=== PATIENT | female | born 1970 | race Caucasian/White ===

== ENCOUNTER → 2017-02-06 | Outpatient (CLI) | payer OTHER ==
--- NOTE | 2017-02-06 11:38 | KCIC ---
EXAM: Bilateral screening mammogram. HISTORY: 46-year-old female presents for screening mammography. TECHNIQUE: Full-field digital craniocaudal and mediolateral oblique standard and breast implant displaced views of both breasts are obtained for evaluation. COMPARISON: 01/16/2016, 11/24/2014 and 10/18/2013 BREAST PARENCHYMAL DENSITY: Level D - Extremely dense. FINDINGS: There is a small nodular density within the posterior superior right breast on the mediolateral oblique implant displaced image. There is no correlate for this finding on prior studies. There is no suspicious calcification or architectural distortion within either breast. IMPRESSION: BI-RADS Category 0: Additional imaging needed. RECOMMENDATION: Further evaluation with a spot compression mediolateral oblique view and full field true lateral view of the right breast to assess a small nodular density is recommended. Sonographic imaging can also be performed if deemed indicated based on additional imaging findings. If your mammogram demonstrates that you have dense breast tissue, which could hide abnormalities, and if you have other risk factors for breast cancer that have been identified, you might benefit from supplemental screening tests that may be suggested by your ordering physician. Dense breast tissue, in and of itself, is a relatively common condition. This information is not provided to cause undue concern, but rather to raise your awareness and to promote discussion with your physician regarding the presence of other risk factors, in addition to dense breast tissue. A report of your mammography results will be sent to you and your physician. You should contact your physician if you have any questions or concerns regarding this report. Mammography is a sensitive method for finding small breast cancers, but it does not detect them all and is not a substitute for careful clinical examination. A negative mammogram does not negate a clinically suspicious finding and should not result in delay in biopsying a clinically suspicious abnormality. "Our facility is accredited by the [employer] Mammography [employer]." Electronically signed by: Kim Brown MD (02/06/2017 11:35 AM) [id number]
== END | disposition home or self-care (01) ==
LOC: KCIC MAMMO 10:44
PROVIDERS: ATTEND Nurse Practitioner Family
DX: Z12.31 Encounter for screening mammogram for malignant neoplasm of breast (principal)
CPT/HCPCS: G0202; 77067

== ENCOUNTER → 2017-10-06 | Outpatient (CLI) | payer OTHER | END | disposition home or self-care (01) | LOC: KCIC MAMMO 12:49 | DX: N63.11 Unspecified lump in the right breast, upper outer quadrant (principal); R92.2 Inconclusive mammogram | CPT/HCPCS: 76641; 77065 ==

== ENCOUNTER → 2018-05-11 | Outpatient (CLI) | payer OTHER ==
--- NOTE | 2018-05-11 14:31 | KCIC ---
Bilateral diagnostic digital mammograms: Reason for examination: 6 month follow-up of the right breast. Annual routine evaluation of the left breast. Comparison is made to previous study dated 10/06/2017, 02/27/2017, 02/06/2017 and 01/16/2016. Interpretation was made with the benefit of CAD. The skin and nipples show no abnormalities. No abnormal axillary lymph nodes are seen. Bilateral breast implants remain present. The breast parenchyma is extremely dense. (Breast density: Category D.) There is a nodular parenchymal density posterior superiorly in the right breast seen only on oblique view. This will be further evaluated with ultrasound. There are no other dominant masses, suspicious calcifications or architectural distortion. Impression: Nodular parenchymal density posterior superiorly on the right oblique view. Ultrasound to follow. Your patient's mammogram demonstrates that she has dense breast tissue (breast density category C or D), which could hide abnormalities, and if she has other risk factors for breast cancer that have been identified, she might benefit from supplemental screening tests that may be suggested by you as her ordering physician. Dense breast tissue, in and of itself, is a relatively common condition. Therefore, this information is not provided to cause undue concern, but rather to raise your awareness and to promote discussion with your patient regarding the presence of other risk factors, in addition to dense breast tissue. Your patient's mammography results will be sent to her. BI-RAD Category 0: Incomplete. Needs additional imaging evaluation. Right breast ultrasound: Right breast ultrasound of the superior right breast and axilla was performed. There continues to be a small 3 mm fibrocystic type lesion at the 12:00 position 5 cm from the nipple. In the 11:00 position 8.5 cm from the nipple probably corresponding to the area of mammographic concern, there is a 5.1 x 3 mm hypoechoic lesion with a benign fibrocystic type appearance. No other cystic or solid lesions are seen. IMPRESSION: Probable fibrocystic lesion at the 11:00 position 8.5 cm from the nipple corresponding to the area of nodularity seen mammographically. Continued presence of a small fibrocystic lesion at the 12:00 position. Recommend follow-up with ultrasound in 6 months. BI-RADS Category 3: Probably Benign. "Our facility is accredited by the [employer] Mammography Program." This patient's information has been entered into a reminder system for the patient to be notified with the results of her examination and a target date for the next mammogram. Electronically signed by: Magaly Vargas MD (05/11/2018 2:27 PM) [id number]
== END | disposition home or self-care (01) ==
LOC: KCIC MAMMO 09:55
PROVIDERS: ATTEND Nurse Practitioner Family
DX: N64.89 Other specified disorders of breast (principal)
CPT/HCPCS: 76641; 77066

== ENCOUNTER → 2018-07-14 | Outpatient (CLI) | payer OTHER ==
[~2018-07-14] MED LIST: DIPH25CA PO; FLUO40CA9 PO; MONT10TA9 PO
--- NOTE | 2018-07-14 09:49 | KCIC ---
Five-view lumbar spine dated 07/14/2018. No comparison available. Clinical data indication: Low back pain and right leg pain. FINDINGS: AP, lateral, bilateral oblique and coned-down views of the lumbosacral junction obtained. 5 nonrib-bearing vertebral levels. There is slight retrolisthesis of L3 on L4. Sagittal alignment is otherwise anatomic. Vertebral body heights are maintained. Mild endplate hypertrophic changes throughout. Mild arthrosis lower lumbar apophyseal joints. No pars defects on the oblique views. IMPRESSION: 1. No acute radiographic abnormality. 2. Mild multilevel spondylosis. Electronically signed by: Jomar Rogers MD (07/14/2018 9:46 AM) [facility]
== END | disposition home or self-care (01) ==
LOC: KCIC 08:43
PROVIDERS: ATTEND Nurse Practitioner Family
DX: M47.816 Spondylosis without myelopathy or radiculopathy, lumbar region (principal)
CPT/HCPCS: 72110

== ENCOUNTER → 2018-08-03 | Outpatient (CLI) | payer OTHER ==
--- NOTE | 2018-08-03 10:13 | KCIC ---
EXAM: Lumbar spine MRI without contrast. HISTORY: Lower back pain and right lower extremity radiculopathy. TECHNIQUE: Multiplanar, multisequence magnetic resonance imaging of the lumbar spine was performed without contrast. COMPARISON: Radiographs dated 07/14/2018. Note is made of a lumbar spine MRI dated 10/15/2012 is not available for direct comparison at the time of dictation. FINDINGS: There is lumbar levoscoliosis centered at L3. There is mild retrolisthesis of L3 on L4 and minimal retrolisthesis of L4 and L5 and L5 on S1. There is degenerative endplate remodeling with disc space narrowing and osteophytosis primarily along the right aspect of L3-L4 and bilaterally at L5-S1. There are few endplate Schmorl's nodes. There is no suspicious osseous lesion. There are few incidental osseous hemangiomas. There is no acute or subacute fracture. The conus terminates at L1-L2 At L1-L2, there and a predominant endplate remodeling. There is no stenosis. At L2-L3, there is anterior predominant endplate remodeling. There is no stenosis. At L3-L4, there is a disc bulge and right lateral predominant endplate osteophytosis. There is mild retrolisthesis. There is minimal left foraminal stenosis. At L4-L5, there is a left paracentral to extraforaminal disc protrusion with slight superior and inferior extrusion superimposed on a left lateral predominant disc bulge and endplate remodeling. There is minimal facet arthropathy. There is mild left foraminal stenosis with deviation of the exiting left L4 nerve root. There is effacement of the left lateral recess with abutment of the traversing left L5 nerve root. At L5-S1, there is a diffuse disc bulge and endplate osteophytosis. There is abutment of the exiting right L5 nerve root without significant foraminal stenosis. IMPRESSION: 1. Multilevel degenerative changes of the lumbar spine, described in detail above. This is most significant at L4-L5, resulting in mild left foraminal stenosis with deviation of the exiting left L4 nerve root and effacement of the left lateral recess with abutment of the traversing left L5 nerve root. There is also abutment of the exiting right L5 nerve root at L5-S1, without significant stenosis. 2. Mild lumbar scoliosis and minimal to mild retrolisthesis at multiple levels. Electronically signed by: Kim Brown MD (08/03/2018 10:10 AM) [email or web address]
== END | disposition home or self-care (01) ==
LOC: KCIC MRI 08:59
PROVIDERS: ATTEND Nurse Practitioner Family
DX: M47.816 Spondylosis without myelopathy or radiculopathy, lumbar region (principal); M48.061 Spinal stenosis, lumbar region without neurogenic claudication; M41.86 Other forms of scoliosis, lumbar region; M51.27 Other intervertebral disc displacement, lumbosacral region
CPT/HCPCS: 72148

== ENCOUNTER → 2018-09-01 | Outpatient (CLI) | payer OTHER ==
--- NOTE | 2018-09-02 05:15 | PAIN ---
DATE OF SERVICE: 09/01/2018 INITIAL CONSULTATION FOR PAIN CLINIC CHIEF COMPLAINT: Low back and right lower extremity pain. HISTORY OF PRESENT ILLNESS: This is a 48-year-old female who presents with a history of pain since about mid June 2018, gradually increasing, not the result of any specific injury or action that she is aware of, but in the low back and right lower extremity, mostly in the posterior hip and then into the lateral anterior thigh, anterior medial thigh, medial lower leg, medial calf and into the foot with some numbness and tingling in the great toe on the right side. The patient reports it is worse with walking, standing, change in positions, describes as throbbing, radiating, intermittent in intensity, but always present, worse at night, waking her from sleep and worse when she is on her feet, walking or standing, better with sitting, but after about 20-30 minutes, the pain began to return with sitting as well. The patient reports it wakes her up from sleep at least twice a night. She has been taking a muscle relaxant, which does help her sleep some, but does not decrease the pain, does not affect her bowel or bladder control or ability to walk significantly, but she is putting up with the pain while she is walking. The patient reports she has had physical therapy in the past and has been doing strengthening and stretching exercises for the past 4 months since the pain began or slightly before the pain got worse with strengthening and stretching helped some mildly, but only about 10%. The patient reports she has tried Tylenol as well as a muscle relaxant, which helped her to sleep, but the Tylenol was not decreasing the pain. She has an ALLERGIC RESPONSE TO IBUPROFEN and has not tried this. The patient reports no complete loss of motor function, but significant fatigability in the right leg with standing and walking. The patient reports her disability rating from 0 to 10, 10 being the worst, is a 3 with family home responsibilities, recreation, social activity and occupation, 2 with sexual behavior and 0 with self-care and 3 with life support activities. The patient did have MRI scan of the lumbar spine dated 08/03/2018 showing multilevel degenerative changes, most significant at L4-L5 resulting in mild left foraminal stenosis with deviation of the exiting left L4 nerve root and effacing the left lateral recess with abutment of the traversing left L5 nerve root. Also, abutment of the exiting right L5 nerve root at L5-S1 without significant stenosis. PAST MEDICAL HISTORY: Significant for cigarette smoking, 4-5 cigarettes a day. PREVIOUS SURGERIES: Include low back surgery with a disk fragment reviewed in 2002, tubal ligation in 2002, cholecystectomy in 2002, sinus surgery x 2 in the past for deviated septum. Otherwise, the patient has been in fairly good health. REVIEW OF SYSTEMS: Positive for those items mentioned in history of present illness. All systems reviewed and otherwise negative. It is complete, full and well documented on the patient's chart. MEDICATIONS: Include Prozac, montelukast and diphenhydramine for allergy formula. ALLERGIES: THE PATIENT IS ALLERGIC TO IBUPROFEN, WHICH CAUSES ANAPHYLAXIS. FAMILY HISTORY: Significant for breast cancer in her mom and her aunt. SOCIAL HISTORY: The patient drinks about 2 glasses of alcohol twice a week, smokes about 4-5 cigarettes and has for about 25 years per day. Denies any illegal, illicit or recreational drugs. 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 PHYSICAL EXAMINATION: VITAL SIGNS: Today, his blood pressure is 121/80, pulse is 85, respirations 16, temperature 98.8 degrees Fahrenheit, height is 5 feet 7 inches, weight is 132 pounds. GENERAL: The patient is awake, alert, oriented, appropriate, very pleasant demeanor. HEENT: Head shows normocephalic, atraumatic. Extraocular movements intact and symmetrical. Oral cavity: Mucous membranes are moist and pink. Dentition is intact. NECK: Shows anterior throat supple without palpable lymphadenopathy noted. Swallow reflex symmetrical. CHEST: Shows normal with inspection. Breath sounds are clear to auscultation bilaterally. HEART: Shows S1, S2 clear. No murmurs auscultated. ABDOMEN: Soft, nontender, nondistended. No palpable organomegaly is noted. No rebound or guarding demonstrated. BACK: Shows spine grossly in the midline. Normal appearing thoracic kyphosis and lumbar lordotic curvature. Well-healed surgical scars noted in the lumbar distribution. Lumbar paraspinous muscle shows symmetrical on inspection, with palpation shows some moderate tenderness in the low lumbar distribution, slightly more on the right than the left, but symmetrical without evidence of atrophy or hypertrophy, no trigger points. No tenderness over the spinous processes, sacrum or sacroiliac regions. The patient has good rotational motion of the lumbar spine, both laterally as well as extension and flexion greater than 10 degrees right and left as well as extension greater than 10 degrees, forward flexion 45 degrees without increase in pain. The patient's lower extremities show deep tendon reflexes 2+ in the patellar, 1+ tendocalcaneus tendons. Motor exam is approximately 4 on a scale of 5 with right dorsiflexion, extension and 5/5 on the left, quadriceps and hamstring flexion 5/5 and equal bilaterally. Peripheral pulses are 1+ in posterior tibial. No peripheral edema is noted bilaterally. Lower extremities are warm and dry to touch, equal in color and appearance. The patient's straight leg raise noted to be mildly positive about 40 degrees on the right, decreased with knee flexion. The left is negative. Gaenslen's and Apollo maneuvers are negative bilaterally as well. SKIN: Shows warm and dry, good turgor. No edema. No sores, rashes or bruising throughout. The patient is able to stand, stand on her toes without difficulty or loss of balance, walks with a normal appearing gait for short distance in the office, not using any assistive devices. IMPRESSION: 1. This is a 48-year-old female with approximate 3 or 4-month history of increasing pain in low back, right lower extremity in a radicular fashion following an L4-L5 dermatomal distribution. 2. Previous lumbar surgery. 3. Cigarette smoking. PLAN: Options were discussed with the patient including conservative medical management, physical therapy, interventional techniques and she is doing physical therapy skills and stretching and strengthening on her own for the past 4 months or so and has had back surgery previously. She would like to pursue interventional treatment. We discussed a lumbar epidural steroid injection using description as well as anatomical models to describe the procedure. The patient will wait for preauthorization with her insurance provider. We will plan on lumbar epidural steroid injection at L4-L5 level, translaminar approach for her L4-L5 radiculopathy on the right leg. The patient will continue with her therapy and stretching and strengthening exercises in the meantime and will have her follow up in approximately one week to plan on lumbar epidural steroid injection at that time. OFELIA MICHEL MD DR: KIRK/wilbert JOB#: [id number] / [id number] ERIKA Gutierrez APRN
== END | disposition home or self-care (01) ==
LOC: PNCL 12:41
PROVIDERS: ATTEND Anesthesiology
DX: M54.5 Low back pain (principal); M79.661 Pain in right lower leg; F17.210 Nicotine dependence, cigarettes, uncomplicated; Z88.6 Allergy status to analgesic agent; Z80.3 Family history of malignant neoplasm of breast; Z90.49 Acquired absence of other specified parts of digestive tract; Z98.51 Tubal ligation status
CPT/HCPCS: G0463

== ENCOUNTER → 2018-09-15 | Outpatient (CLI) | payer OTHER ==
[~2018-09-15] MED LIST changes: +IOHEXOL 180 MG/ML 10 ML VIAL. ONE; +methylPREDNISolone ACETATE 40 MG/ML VIAL. ONE; +methylPREDNISolone ACETATE 80 MG/ML VIAL. ONE
--- NOTE | 2018-09-15 23:19 | PAIN ---
DATE OF SERVICE: 09/15/2018 PROGRESS NOTE FOR PAIN CLINIC DIAGNOSES: Lumbar radiculopathy with lumbar degenerative disk disease and lumbar herniated disk. HISTORY OF PRESENT ILLNESS: The patient is a 48-year-old female who returns for followup status post initial evaluation and preauthorization for lumbar epidural steroid injection. The patient reports still significant pain in the low back and right lower extremity as it was previously, rated as a 9 on a scale of 10 at its worst, 7 on average, 6 at its least over the past week and is a 6 today. The patient reports it is aching, tingling, on and off in intensity; worse with walking, standing and changing positions and better with sitting or lying down, but it is waking her from sleep fairly often at night. The patient reports no new motor or sensory deficits. No new bowel or bladder incontinence or other complaints. PHYSICAL EXAMINATION: VITAL SIGNS: The patient's blood pressure is 117/81, pulse 98, respirations 18 and temperature is 98.6 degrees Fahrenheit. Height is 5 feet 7 inches, weight is 134 pounds. GENERAL: The patient is awake, alert, oriented, appropriate, very pleasant demeanor. HEENT EXAMINATION: Shows normocephalic, atraumatic. The patient wears eyeglasses. Extraocular movements are intact and symmetrical. Oral cavity, mucous membranes are moist and pink. Dentition is intact. NECK: Shows anterior throat supple, without palpable lymphadenopathy noted. Swallow reflex is symmetrical. CHEST: Shows normal on inspection. Breath sounds are clear to auscultation bilaterally. HEART: Shows S1, S2 clear. No murmurs auscultated. ABDOMEN: Soft, nontender and nondistended. No palpable organomegaly is noted. No rebound or guarding demonstrated. BACK: Shows spine grossly in the midline. Normal-appearing thoracic kyphosis and lumbar lordotic curvature. Lumbar paraspinous muscle shows symmetrical on inspection. On palpation, it shows some moderate tenderness diffusely bilaterally, but only diffusely, without radiation. The patient shows good rotational motion of the lumbar spine, both laterally as well as extension and flexion, without significant difficulty or pain reported. EXTREMITIES: Lower extremities show deep tendon reflexes at 2+ in the patellar and 1+ tendo calcaneus tendons. Motor exam is approximately 4 on a scale of 5 on the right with dorsiflexion and extension and 5/5 on the left. Options were discussed with the patient. The patient's old chart was reviewed as was her current medication regimen updated. Current review of systems updated today as well. We will proceed with lumbar epidural steroid injection today with fluoroscopic guidance. Risks were again discussed including, but not limited to bleeding, infection, possibility of epidural hematoma, subsequent neurological compromise, dural puncture, headaches, spinal cord and/or nerve damage, side effects to steroid medication and poor results regarding pain control. The patient understands and wishes to proceed. The patient will return to the clinic in approximately 2 weeks for followup. She was counseled on her return appointment, activity level and side effects to be aware of. DIAGNOSES: Lumbar radiculopathy with lumbar degenerative disk disease and lumbar herniated disk. PROCEDURE: Lumbar epidural steroid injection in a translaminar approach at L4-L5 level using C-arm fluoroscopic guidance under sterile prep and drape using local anesthetic. MEDICATION INJECTED: A total of 120 mg Depo-Medrol plus 10 mL of preservative-free normal saline and 2 mL of contrast. CONDITION AT DISCHARGE: Stable. The patient tolerated the procedure well, had no complications. OFELIA MICHEL MD DR: KIRK/wilbert JOB#: [id number] / [id number]
== END | disposition home or self-care (01) ==
LOC: PNCL 13:23
PROVIDERS: ATTEND Anesthesiology
DX: M51.16 Intervertebral disc disorders with radiculopathy, lumbar region (principal); Z91.011 Allergy to milk products; Z88.8 Allergy status to other drugs, medicaments and biological substances
CPT/HCPCS: 62323; J1030; J1040; Q9965

== ENCOUNTER → 2018-10-13 | Outpatient (CLI) | payer OTHER ==
--- NOTE | 2018-10-13 12:44 | PAIN ---
DATE OF SERVICE: 10/13/2018 PROGRESS NOTE FOR PAIN CLINIC DIAGNOSIS: Lumbar radiculopathy with lumbar degenerative disk disease with lumbar herniated disk. HISTORY OF PRESENT ILLNESS: The patient is a 48-year-old female who returns for followup status post lumbar epidural steroid injection x 1 with about 60% improvement in the low back and right leg, but still have some tingling in the back and leg and into the left foot as well, but much better than it was. The patient reports it increases with her activity, distance walking, greater activities at work and at home, traveling with much greater ease and comfort. The patient reports pain is returning in the low back, ____ the right leg greater than left, some tingling in the left foot. The patient reports it is aching and throbbing in the back, tingling and shooting into the legs. The patient reports it is a 3 on a scale of 10 at its worst on the past week, 3 on average, 1 at its least and is a 3 today. The patient reports no new motor or sensory deficits, no new bowel or bladder incontinence or other complaints. PHYSICAL EXAMINATION: VITAL SIGNS: The patient's blood pressure 118/77, pulse 84, respirations 18, temperature is 98.4 degrees Fahrenheit, height is 5 feet 7 inches, and weight is 136 pounds. GENERAL: The patient is awake, alert, oriented, appropriate, very pleasant demeanor. HEENT: Shows normocephalic, atraumatic. Extraocular movements are intact and symmetrical. Oral cavity; mucous membranes are moist and pink. Dentition is intact. NECK: Shows anterior throat is supple without palpable lymphadenopathy noted. Swallow reflex is symmetrical. CHEST: Shows normal on inspection. Breath sounds are clear to auscultation bilaterally. HEART: Shows S1 and S2 clear. No murmurs auscultated. ABDOMEN: Soft, nontender, nondistended. BACK: Shows spine grossly in the midline. Normal appearing thoracic kyphosis and lumbar lordotic curvature slightly flattened. Lumbar paraspinous muscle shows symmetrical on inspection and on palpation some moderate tenderness diffusely in the middle and lower distribution of paraspinous muscles, but only diffusely without radiation. EXTREMITIES: The patient's lower extremities show deep tendon reflexes at 2+ in the patellar, 1+ tendo-calcaneus tendons. Motor exam is approximately 4 on a scale of 5 on the right and 5/5 on the left dorsiflexion and extension. Peripheral pulses are 1+ posterior tibia. No peripheral edema is noted bilaterally. Options were discussed with the patient. The patient's old chart was reviewed as well as her current medication regimen updated. Current review of systems updated today as well. We will proceed with a second in this series of lumbar epidural steroid injection today with fluoroscopic guidance. Risks were again discussed including, but not limited to bleeding, infection, possibility of epidural hematoma, subsequent neurological compromise, dural puncture, headaches, spinal cord and/or nerve damage, side effects of steroid medication and poor results regarding pain control. The patient understands and wished to proceed. The patient will return to the clinic in approximately 2 weeks for followup, was counseled as to return appointment, activity level and side effects to be aware of. DIAGNOSIS: Lumbar radiculopathy with lumbar degenerative disk disease with lumbar herniated disk. PROCEDURE: Lumbar epidural steroid injection, translaminar approach L4-L5 level using C-arm fluoroscopic guidance under sterile prep and drape using local anesthetic. MEDICATION INJECTED: A total of 120 mg Depo-Medrol plus 10 mL of preservative-free normal saline and 2 mL of contrast. CONDITION AT DISCHARGE: Stable. The patient tolerated the procedure well, had no complications. OFELIA MICHEL MD DR: KIRK/wilbert JOB#: [id number] / [id number]
== END ==
LOC: PNCL 09:42
PROVIDERS: ATTEND Anesthesiology
DX: M51.16 Intervertebral disc disorders with radiculopathy, lumbar region (principal)
CPT/HCPCS: 62323; J1030; J1040; Q9965

== ENCOUNTER → 2018-12-29 | Outpatient (CLI) | payer OTHER ==
[~2018-12-29] MED LIST changes: -IOHEXOL 180 MG/ML 10 ML VIAL. ONE; +MONT10TA49 PO; -MONT10TA9 PO; -methylPREDNISolone ACETATE 40 MG/ML VIAL. ONE; -methylPREDNISolone ACETATE 80 MG/ML VIAL. ONE
--- NOTE | 2018-12-29 13:40 | KCIC ---
Right breast ultrasound COMPARISON: Right breast ultrasound May 11, 2018 and October 06, 2017 HISTORY: Follow-up of probably benign fibrocystic lesions, mammographic nodularity. FINDINGS: Right breast 12:00 position 5 cm from the nipple demonstrates a 3 mm cystic lesion which is stable back to October 2017. Separately at the right breast 11:00 position 8 cm from the nipple there is a 4 x 2 mm oval circumscribed hypoechoic cystic lesion which may be incompletely visualized due to positioning of the lesion adjacent of the shadowing fibrous capsule about the implant, it measures stable to slightly smaller from May 2018, and was new prior to that study. Imaging features are probably benign. No new or suspicious lesion. No axillary adenopathy. IMPRESSION: Right upper breast probably benign fibrocystic lesions are stable. Attention on follow-up right breast sonography May 2018 around the time of the patient's scheduled annual screening mammographic follow-up is advised to document continued stability. BI-RADS Category 3: Probably benign Electronically signed by: Andrew De Leon MD (12/29/2018 1:37 PM) [id number]
== END | disposition home or self-care (01) ==
LOC: KCIC US 13:01
PROVIDERS: ATTEND Nurse Practitioner Family
DX: R92.8 Other abnormal and inconclusive findings on diagnostic imaging of breast (principal)
CPT/HCPCS: 76641

== ENCOUNTER 2019-01-14 13:01 | Observation (INO) | payer OTHER ==
[2019-01-14] VITALS (9 sets, daily range): BP systolic 106–122; BP diastolic 58–73
[~2019-01-14] VITALS: Ht 170.2 cm; Wt 71.0 kg
[2019-01-14] MEDS ORDERED: MORPHINE SULFATE 4 MG/ML VIAL. IV/SQ PRN (13:45)
[2019-01-14 13:46] LABS: BASO % 0 % (0-3); EOS # 0.3 x10^3/uL (0.0-0.7); EOS % 3 % (0-3); HEMATOCRIT 39.6 % (36.0-47.0); HEMOGLOBIN 13.5 g/dL (12.0-15.5); LYMPH % 11 % (24-48); MEAN CORPUSCULAR HEMOGLOBIN 33 pg (25-35); MEAN CORPUSCULAR HGB CONC 34 g/dL (31-37); MEAN CORPUSCULAR VOLUME 98 fL (79-100); MONO # 0.8 x10^3/uL (0.0-1.1); MONO % 9 % (0-9); NEUT % 77 % (31-73); PLATELET COUNT 244 x10^3/uL (140-400); RED BLOOD COUNT 4.06 x10^6/uL (3.50-5.40); RED CELL DISTRIBUTION WIDTH 12.9 % (11.5-14.5)
[2019-01-14 13:54] LABS: CALCIUM 9.3 mg/dL (8.5-10.1); CREATININE 1.1 mg/dL (0.6-1.0); GFR 53.5; POTASSIUM 3.9 mmol/L (3.5-5.1)
--- NOTE | 2019-01-14 13:54 | PHYS DOC ---
Past Medical History Past Medical History: Asthma Past Surgical History: Cholecystectomy, Tubal ligation Additional Past Surgical Histo: breast implant Alcohol Use: Occasionally Drug Use: None Adult General Chief Complaint Chief Complaint: ABDOMINAL PAIN HPI HPI Patient is a pleasant 48-year-old female who presents to the emergency room, for evaluation of right lower quadrant pain which has been present for 2 days. She has not had any nausea, vomiting, diarrhea, or fever, movement seems to worsen her pain, she has not had any vaginal bleeding or discharge. Her LMP was about 3 weeks ago. There are no alleviating or exacerbating factors to the patient's symptoms, except as noted above. Review of Systems Review of Systems Constitutional: Denies fever or chills [] Eyes: Denies change in visual acuity, redness, or eye pain [] HENT: Denies nasal congestion or sore throat [] Respiratory: Denies cough or shortness of breath [] Cardiovascular: No additional information not addressed in HPI [] GI: Denies nausea, vomiting, bloody stools or diarrhea [] : Denies dysuria or hematuria [] Musculoskeletal: Denies back pain or joint pain [] Integument: Denies rash or skin lesions [] Neurologic: Denies headache, focal weakness or sensory changes [] Endocrine: Denies polyuria or polydipsia [] All other systems were reviewed and found to be within normal limits, except as documented in this note. Current Medications Current Medications Current Medications Medications (Trade) Dose Ordered Sig/Steffanie Start Time Stop Time Status Last Admin Dose Admin Info (CONTRAST GIVEN -- Rx MONITORING) 1 each PRN DAILY PRN 01/14/19 14:15 01/16/19 14:14 Iohexol (Omnipaque 300 Mg/ml) 100 ml STK-MED ONCE 01/14/19 14:03 01/14/19 14:03 DC Morphine Sulfate (Morphine Sulfate) 4 mg PRN Q15MIN PRN 01/14/19 13:45 01/15/19 13:44 01/14/19 13:57 4 MG Ondansetron HCl (Zofran) 4 mg 1X ONCE 01/14/19 14:00 01/14/19 14:01 DC 01/14/19 13:57 4 MG Piperacillin Sod/ Tazobactam Sod 4.5 gm/Sodium Chloride 100 ml @ 200 mls/hr 1X ONCE 01/14/19 14:30 01/14/19 14:59 Sodium Chloride 1,000 ml @ 1,000 mls/hr Q1H 01/14/19 14:00 01/14/19 14:59 01/14/19 14:20 1,000 MLS/HR Allergies Allergies Allergies Coded Allergies Type Severity Reaction Last Updated Verified ibuprofen Allergy Severe ANAPHALAXIS 09/01/18 Yes Milk Containing Products Adverse Reaction Intermediate GASTRIC UPSET 09/01/18 Yes Physical Exam Physical Exam PHYSICAL EXAM: CONSTITUTIONAL: Well developed, well nourished HEAD: normocephalic, atraumatic EENT: PERRL, EOMI. Conjunctivae normal color, sclerae non-icteric; moist mucous membranes. NECK: Supple, non-tender; no meningismus. LUNGS: Lungs CTA, breathing even and unlabored. Normal air movement. HEART: Regular rate and rhythm, no murmur CHEST: No deformity; non-tender ABDOMEN: The abdomen is soft, there is focal right lower quadrant tenderness to palpation, without rebound or guarding, bowel sounds are present but somewhat diminished, the right upper quadrant, and suprapubic area, as well as the remainder of the abdomen, are all relatively soft and non-tender, no masses or bruits. EXTREM: Normal ROM; no deformity, no calf tenderness. Normal pulses palpable in all extremities. There is no pedal edema. SKIN: No rash; no diaphoresis NEURO: Alert; normal speech and cognition; CN's grossly intact; strength grossly intact without focal deficit. BACK: No CVA TTP. Current Patient Data Vital Signs Vital Signs Date Time Temp Pulse Resp B/P (MAP) Pulse Ox O2 Delivery O2 Flow Rate FiO2 01/14/19 13:57 18 92 Room Air 01/14/19 13:30 94 128/68 (88) 01/14/19 13:07 97.9 97.9 Lab Values Laboratory Tests Test 01/14/19 13:40 White Blood Count 9.0 x10^3/uL (4.0-11.0) Red Blood Count 4.06 x10^6/uL (3.50-5.40) Hemoglobin 13.5 g/dL (12.0-15.5) Hematocrit 39.6 % (36.0-47.0) Mean Corpuscular Volume 98 fL (79-100) Mean Corpuscular Hemoglobin 33 pg (25-35) Mean Corpuscular Hemoglobin Concent 34 g/dL (31-37) Red Cell Distribution Width 12.9 % (11.5-14.5) Platelet Count 244 x10^3/uL (140-400) Neutrophils (%) (Auto) 77 % (31-73) H Lymphocytes (%) (Auto) 11 % (24-48) L Monocytes (%) (Auto) 9 % (0-9) Eosinophils (%) (Auto) 3 % (0-3) Basophils (%) (Auto) 0 % (0-3) Neutrophils # (Auto) 7.0 x10^3/uL (1.8-7.7) Lymphocytes # (Auto) 1.0 x10^3/uL (1.0-4.8) Monocytes # (Auto) 0.8 x10^3/uL (0.0-1.1) Eosinophils # (Auto) 0.3 x10^3/uL (0.0-0.7) Basophils # (Auto) 0.0 x10^3/uL (0.0-0.2) Sodium Level 138 mmol/L (136-145) Potassium Level 3.9 mmol/L (3.5-5.1) Chloride Level 101 mmol/L (98-107) Carbon Dioxide Level 27 mmol/L (21-32) Anion Gap 10 (6-14) Blood Urea Nitrogen 10 mg/dL (7-20) Creatinine 1.1 mg/dL (0.6-1.0) H Estimated GFR (Cockcroft-Gault) 53.5 BUN/Creatinine Ratio 9 (6-20) Glucose Level 84 mg/dL (70-99) Calcium Level 9.3 mg/dL (8.5-10.1) Total Bilirubin 0.5 mg/dL (0.2-1.0) Aspartate Amino Transferase (AST) 17 U/L (15-37) Alanine Aminotransferase (ALT) 16 U/L (14-59) Alkaline Phosphatase 83 U/L (46-116) Total Protein 8.1 g/dL (6.4-8.2) Albumin 3.8 g/dL (3.4-5.0) Albumin/Globulin Ratio 0.9 (1.0-1.7) L Lipase 100 U/L (73-393) Serum Test, Qualitative Negative (NEG) Laboratory Tests 01/14/19 13:40 Laboratory Tests 01/14/19 13:40 EKG EKG [] Radiology/Procedures Radiology/Procedures [PROCEDURE: CT ABD PELV W/ IV CONTRST ONLY Examination: CT ABD PELV W/ IV CONTRST ONLY History: Right lower quadrant pain Comparison/Correlation: None Findings: Axial images of the abdomen and pelvis were obtained following IV contrast. Sagittal and coronal reformatted images were provided. Bilateral breast implants are partially seen. Visualized lung bases are clear. Liver, spleen, pancreas, and adrenal glands are normal. Cholecystectomy is evident. Appendix is distended with fluid with surrounding inflammatory findings. No abscess collection. No bowel obstruction. Trace pelvic free fluid is probably reactive or physiologic. Small umbilical hernia contains omental fat. Uterus is unremarkable. Significant L5-S1 disc space narrowing is present. Urinary bladder is unremarkable. Uterus is grossly unremarkable. Impression: Acute appendicitis. No abscess or extraluminal gas. ] Course & Med Decision Making Course & Med Decision Making Pertinent Labs and Imaging studies reviewed. (See chart for details) [] 2:30 PM: Patient's condition remains a stable. I spoke with Dr. Burkett, who will admit the patient for surgical management. Dragon Disclaimer Dragon Disclaimer This electronic medical record was generated, in whole or in part, using a voice recognition dictation system. Departure Departure Impression: Primary Impression: Acute appendicitis Disposition: ADMITTED INPATIENT Condition: STABLE Referrals: ERIKA HOLMAN APRN (PCP) JANE CHENG MD Jan 14, 2019 13:54
[2019-01-14 14:00] LABS: ALBUMIN 3.8 g/dL (3.4-5.0); ALBUMIN/GLOBULIN RATIO 0.9 (1.0-1.7); PREG TEST PT QUAL NEGATIVE (NEG); TOTAL BILIRUBIN 0.5 mg/dL (0.2-1.0); TOTAL PROTEIN 8.1 g/dL (6.4-8.2)
[2019-01-14] MEDS ORDERED: ONDANSETRON PF 4 MG/2 ML VIAL. IV ONE (14:00)
[2019-01-14] MEDS ORDERED: IV NORMAL SALINE 1000ML BAG 1,000 ML IV SCH (14:00)
[2019-01-14] MEDS ORDERED: IOHEXOL 300 MG/ML 100ML VIAL. IV ONE (14:00)
[2019-01-14] MEDS ORDERED: IOHEXOL 300 MG/ML 100ML VIAL. ONE (14:03)
[2019-01-14] MEDS ORDERED: CONTRAST GIVEN. MC PRN (14:15)
--- NOTE | 2019-01-14 14:25 | RAD ---
Examination: CT ABD PELV W/ IV CONTRST ONLY History: Right lower quadrant pain Comparison/Correlation: None Findings: Axial images of the abdomen and pelvis were obtained following IV contrast. Sagittal and coronal reformatted images were provided. Bilateral breast implants are partially seen. Visualized lung bases are clear. Liver, spleen, pancreas, and adrenal glands are normal. Cholecystectomy is evident. Appendix is distended with fluid with surrounding inflammatory findings. No abscess collection. No bowel obstruction. Trace pelvic free fluid is probably reactive or physiologic. Small umbilical hernia contains omental fat. Uterus is unremarkable. Significant L5-S1 disc space narrowing is present. Urinary bladder is unremarkable. Uterus is grossly unremarkable. Impression: Acute appendicitis. No abscess or extraluminal gas. PQRS Compliance Statement: One or more of the following individualized dose reduction techniques were utilized for this examination: 1. Automated exposure control 2. Adjustment of the mA and/or kV according to patient size 3. Use of iterative reconstruction technique Electronically signed by: Angelo Bar MD (01/14/2019 2:22 PM) [facility]
[2019-01-14] MEDS ORDERED: PIPERACILLIN/TAZOBACTAM 4.5 GM in IV NORMAL SALINE 100ML 100 ML IV ONE (14:30)
[2019-01-14 14:37] LABS: BILIRUBIN,URINE NEGATIVE (NEG); CLARITY,URINE CLEAR; COLOR,URINE YELLOW; NITRITE,URINE NEGATIVE (NEG); PH,URINE 5.5; PROTEIN,URINE NEGATIVE (NEG-TRACE); UROBILINOGEN,URINE 0.2 mg/dL (0.2 mg/dL)
[2019-01-14 14:38] LABS: BACTERIA,URINE MODERATE /HPF (0-FEW); RBC,URINE 0 /HPF (0-2); SQUAMOUS EPITHELIAL CELL,UR MANY /LPF; WBC,URINE OCC /HPF (0-4)
[2019-01-14] MEDS ORDERED: IV RINGERS,LACTATED 1000ML 1,000 ML IV SCH (14:39)
[2019-01-14] MEDS ORDERED: fentaNYL PF VIAL 100 MCG/2 ML VIAL IV PRN ×2 (14:45)
[2019-01-14] MEDS ORDERED: MORPHINE SULFATE 2 MG/ML VIAL. IV PRN ×2 (14:45→16:30)
[2019-01-14] MEDS ORDERED: LIDOCAINE 1% PF 2 ML VIAL. ID PRN (14:45)
[2019-01-14] MEDS ORDERED: IV DEXTROSE 5%-LACT RINGERS 1,000 ML IV ONE (14:45)
[2019-01-14] MEDS ORDERED: PROCHLORPERAZINE 10 MG/2 ML VIAL. IV PRN (14:45)
[2019-01-14] MEDS ORDERED: ONDANSETRON PF 4 MG/2 ML VIAL. IV PRN ×2 (14:45→16:30)
[2019-01-14] MEDS ORDERED: BUPIVACAINE-EPI 0.25%-1:200000 MPF 30 ML VIAL. INJ ONE (14:45)
[2019-01-14] MEDS ORDERED: HYDROmorphone 2 MG/ML VIAL IV PRN (14:45)
--- NOTE | 2019-01-14 15:21 | PDOC1 ---
History and Physical Date of Admission Date of Admission DATE: 01/14/19 TIME: 15:19 Identification/Chief Complaint Chief Complaint Right lower quadrant abdominal pain for 2 days Source Source: Patient History of Present Illness History of Present Illness 48-year-old female who is been feeling ill for approximately 2 days with right lower quadrant abdominal pain some nausea no vomiting tenotomies any fevers or chills. CT scan shows dilated appendix with. Appendiceal inflammation no abscess Past Medical History Cardiovascular: No pertinent hx Pulmonary: No pertinent hx GI: No pertinent hx Heme/Onc: No pertinent hx Hepatobiliary: No pertinent hx Psych: No pertinent hx Rheumatologic: No pertinent hx Infectious disease: No pertinent hx ENT: No pertinent hx Renal/: No pertinent hx Endocrine: No pertinent hx Dermatology: No pertinent hx Past Surgical History Past Surgical History: Cholecystectomy, Tubal Ligation Family History Family History: No Significant Social History Smoke: No ALCOHOL: none Drugs: None Current Problem List Problem List Problems Medical Problems: (1) Acute appendicitis Status: Acute Current Medications Current Medications Current Medications Morphine Sulfate (Morphine Sulfate) 4 mg PRN Q15MIN PRN IV/SQ PAIN GREATER THAN 3/10 Last administered on 01/14/19at 13:57; Start 01/14/19 at 13:45; Stop 01/15/19 at 13:44 Sodium Chloride 1,000 ml @ 1,000 mls/hr Q1H IV Last administered on 01/14/19at 14:20; Start 01/14/19 at 14:00; Stop 01/14/19 at 14:59; Status DC Ondansetron HCl (Zofran) 4 mg 1X ONCE IV Last administered on 01/14/19at 13:57; Start 01/14/19 at 14:00; Stop 01/14/19 at 14:01; Status DC Iohexol (Omnipaque 300 Mg/ml) 60 ml 1X ONCE IV Last administered on 01/14/19at 14:09; Start 01/14/19 at 14:00; Stop 01/14/19 at 14:03; Status DC Info (CONTRAST GIVEN -- Rx MONITORING) 1 each PRN DAILY PRN MC SEE COMMENTS; Start 01/14/19 at 14:15; Stop 01/16/19 at 14:14 Iohexol (Omnipaque 300 Mg/ml) 100 ml STK-MED ONCE .ROUTE ; Start 01/14/19 at 14:03; Stop 01/14/19 at 14:03; Status DC Piperacillin Sod/ Tazobactam Sod 4.5 gm/Sodium Chloride 100 ml @ 200 mls/hr 1X ONCE IV ; Start 01/14/19 at 14:30; Stop 01/14/19 at 14:59; Status DC Dextrose/Lactated Ringer's 1,000 ml @ 75 mls/hr 1X ONCE IV ; Start 01/14/19 at 14:45; Stop 01/15/19 at 04:04 Bupivacaine HCl/ Epinephrine Bitart (Sensorcaine-Epi 0.25%-1:[id number] Mpf) 30 ml 1X ONCE INJ ; Start 01/14/19 at 14:45; Stop 01/14/19 at 14:46; Status DC Ondansetron HCl (Zofran) 4 mg PRN Q6HRS PRN IV NAUSEA/VOMITING; Start 01/14/19 at 14:45; Stop 01/15/19 at 14:44 Fentanyl Citrate (Fentanyl 2ml Vial) 25 mcg PRN Q5MIN PRN IV MILD PAIN 1-3; Start 01/14/19 at 14:45; Stop 01/15/19 at 14:44 Fentanyl Citrate (Fentanyl 2ml Vial) 50 mcg PRN Q5MIN PRN IV MODERATE TO SEVERE PAIN; Start 01/14/19 at 14:45; Stop 01/15/19 at 14:44 Morphine Sulfate (Morphine Sulfate) 1 mg PRN Q10MIN PRN IV SEVERE PAIN 7-10; Start 01/14/19 at 14:45; Stop 01/15/19 at 14:44 Ringer's Solution 1,000 ml @ 30 mls/hr Q24H IV ; Start 01/14/19 at 14:39; Stop 01/15/19 at 02:38 Lidocaine HCl (Xylocaine-Mpf 1% 2ml Vial) 2 ml PRN 1X PRN ID PRIOR TO IV START; Start 01/14/19 at 14:45; Stop 01/15/19 at 14:44 Hydromorphone HCl (Dilaudid) 0.5 mg PRN Q10MIN PRN IV SEV PAIN, Second choice; Start 01/14/19 at 14:45; Stop 01/15/19 at 14:44 Prochlorperazine Edisylate (Compazine) 5 mg PACU PRN PRN IV NAUSEA, MRX1; Start 01/14/19 at 14:45; Stop 01/15/19 at 14:44 Active Scripts Active Reported Allergy Medicine (Diphenhydramine Hcl) 25 Mg Capsule 25 Mg PO DAILY Montelukast Sodium Tablet (Montelukast Sodium) 10 Mg Tablet 10 Mg PO HS Prozac (Fluoxetine Hcl) 40 Mg Capsule 60 Mg PO DAILY Allergies Allergies: Coded Allergies: ibuprofen (Verified Allergy, Severe, ANAPHALAXIS, 09/01/18) Milk Containing Products (Verified Adverse Reaction, Intermediate, GASTRIC UPSET, 09/01/18) ROS Gastrointestinal: Yes Nausea, Yes Abdominal Pain Physical Exam General: Alert, Oriented X3, Cooperative, mild distress HEENT: Atraumatic, PERRLA, EOMI Lungs: Clear to auscultation, Normal air movement Heart: RRR, no murmurs Abdomen: Normal bowel sounds, Soft, Other (repalpation right lower quadrant) Rectal Exam: not examined Extremities: No edema Skin: No significant lesion Neuro: Normal speech Psych/Mental Status: Mental status NL Vitals Vitals Vital Signs Date Time Temp Pulse Resp B/P (MAP) Pulse Ox O2 Delivery O2 Flow Rate FiO2 01/14/19 13:57 18 92 Room Air 01/14/19 13:30 94 128/68 (88) 01/14/19 13:07 97.9 97.9 Labs Labs Laboratory Tests Test 01/14/19 13:07 01/14/19 13:40 Urine Collection Type Unknown Urine Color Yellow Urine Clarity Clear Urine pH 5.5 Urine Specific [place] 1.015 Urine Protein Negative mg/dL (NEG-TRACE) Urine Glucose (UA) Negative mg/dL (NEG) Urine Ketones (Stick) 15 mg/dL (NEG) Urine Blood Negative (NEG) Urine Nitrite Negative (NEG) Urine Bilirubin Negative (NEG) Urine Urobilinogen Dipstick 0.2 mg/dL (0.2 mg/dL) Urine Leukocyte Esterase Negative (NEG) Urine RBC 0 /HPF (0-2) Urine WBC Occ /HPF (0-4) Urine Squamous Epithelial Cells Many /LPF Urine Bacteria Moderate /HPF (0-FEW) Urine Mucus Mod /LPF White Blood Count 9.0 x10^3/uL (4.0-11.0) Red Blood Count 4.06 x10^6/uL (3.50-5.40) Hemoglobin 13.5 g/dL (12.0-15.5) Hematocrit 39.6 % (36.0-47.0) Mean Corpuscular Volume 98 fL (79-100) Mean Corpuscular Hemoglobin 33 pg (25-35) Mean Corpuscular Hemoglobin Concent 34 g/dL (31-37) Red Cell Distribution Width 12.9 % (11.5-14.5) Platelet Count 244 x10^3/uL (140-400) Neutrophils (%) (Auto) 77 % (31-73) Lymphocytes (%) (Auto) 11 % (24-48) Monocytes (%) (Auto) 9 % (0-9) Eosinophils (%) (Auto) 3 % (0-3) Basophils (%) (Auto) 0 % (0-3) Neutrophils # (Auto) 7.0 x10^3/uL (1.8-7.7) Lymphocytes # (Auto) 1.0 x10^3/uL (1.0-4.8) Monocytes # (Auto) 0.8 x10^3/uL (0.0-1.1) Eosinophils # (Auto) 0.3 x10^3/uL (0.0-0.7) Basophils # (Auto) 0.0 x10^3/uL (0.0-0.2) Sodium Level 138 mmol/L (136-145) Potassium Level 3.9 mmol/L (3.5-5.1) Chloride Level 101 mmol/L (98-107) Carbon Dioxide Level 27 mmol/L (21-32) Anion Gap 10 (6-14) Blood Urea Nitrogen 10 mg/dL (7-20) Creatinine 1.1 mg/dL (0.6-1.0) Estimated GFR (Cockcroft-Gault) 53.5 BUN/Creatinine Ratio 9 (6-20) Glucose Level 84 mg/dL (70-99) Calcium Level 9.3 mg/dL (8.5-10.1) Total Bilirubin 0.5 mg/dL (0.2-1.0) Aspartate Amino Transf (AST/SGOT) 17 U/L (15-37) Alanine Aminotransferase (ALT/SGPT) 16 U/L (14-59) Alkaline Phosphatase 83 U/L (46-116) Total Protein 8.1 g/dL (6.4-8.2) Albumin 3.8 g/dL (3.4-5.0) Albumin/Globulin Ratio 0.9 (1.0-1.7) Lipase 100 U/L (73-393) Serum Test, Qualitative Negative (NEG) Laboratory Tests Test 01/14/19 13:07 01/14/19 13:40 Urine Collection Type Unknown Urine Color Yellow Urine Clarity Clear Urine pH 5.5 Urine Specific [place] 1.015 Urine Protein Negative mg/dL (NEG-TRACE) Urine Glucose (UA) Negative mg/dL (NEG) Urine Ketones (Stick) 15 mg/dL (NEG) Urine Blood Negative (NEG) Urine Nitrite Negative (NEG) Urine Bilirubin Negative (NEG) Urine Urobilinogen Dipstick 0.2 mg/dL (0.2 mg/dL) Urine Leukocyte Esterase Negative (NEG) Urine RBC 0 /HPF (0-2) Urine WBC Occ /HPF (0-4) Urine Squamous Epithelial Cells Many /LPF Urine Bacteria Moderate /HPF (0-FEW) Urine Mucus Mod /LPF White Blood Count 9.0 x10^3/uL (4.0-11.0) Red Blood Count 4.06 x10^6/uL (3.50-5.40) Hemoglobin 13.5 g/dL (12.0-15.5) Hematocrit 39.6 % (36.0-47.0) Mean Corpuscular Volume 98 fL (79-100) Mean Corpuscular Hemoglobin 33 pg (25-35) Mean Corpuscular Hemoglobin Concent 34 g/dL (31-37) Red Cell Distribution Width 12.9 % (11.5-14.5) Platelet Count 244 x10^3/uL (140-400) Neutrophils (%) (Auto) 77 % (31-73) Lymphocytes (%) (Auto) 11 % (24-48) Monocytes (%) (Auto) 9 % (0-9) Eosinophils (%) (Auto) 3 % (0-3) Basophils (%) (Auto) 0 % (0-3) Neutrophils # (Auto) 7.0 x10^3/uL (1.8-7.7) Lymphocytes # (Auto) 1.0 x10^3/uL (1.0-4.8) Monocytes # (Auto) 0.8 x10^3/uL (0.0-1.1) Eosinophils # (Auto) 0.3 x10^3/uL (0.0-0.7) Basophils # (Auto) 0.0 x10^3/uL (0.0-0.2) Sodium Level 138 mmol/L (136-145) Potassium Level 3.9 mmol/L (3.5-5.1) Chloride Level 101 mmol/L (98-107) Carbon Dioxide Level 27 mmol/L (21-32) Anion Gap 10 (6-14) Blood Urea Nitrogen 10 mg/dL (7-20) Creatinine 1.1 mg/dL (0.6-1.0) Estimated GFR (Cockcroft-Gault) 53.5 BUN/Creatinine Ratio 9 (6-20) Glucose Level 84 mg/dL (70-99) Calcium Level 9.3 mg/dL (8.5-10.1) Total Bilirubin 0.5 mg/dL (0.2-1.0) Aspartate Amino Transf (AST/SGOT) 17 U/L (15-37) Alanine Aminotransferase (ALT/SGPT) 16 U/L (14-59) Alkaline Phosphatase 83 U/L (46-116) Total Protein 8.1 g/dL (6.4-8.2) Albumin 3.8 g/dL (3.4-5.0) Albumin/Globulin Ratio 0.9 (1.0-1.7) Lipase 100 U/L (73-393) Serum Test, Qualitative Negative (NEG) Images Images CT scan as in the history of present illness VTE Prophylaxis Ordered VTE Prophylaxis Devices: Yes VTE Pharmacological Prophylaxi: Contraindicated Assessment/Plan Assessment/Plan Acute appendicitis plan laparoscopic appendectomy LOUISE MARIE MD Jan 14, 2019 15:21
[2019-01-14] MEDS ORDERED: ROCURONIUM 50 MG/5 ML VIAL. ONE (15:44)
[2019-01-14] MEDS ORDERED: SUCCINYLCHOLINE 200 MG/10 ML VIAL. ONE (15:44)
[2019-01-14] MEDS ORDERED: fentaNYL PF VIAL 100 MCG/2 ML VIAL ONE ×2 (15:44→17:33)
[2019-01-14] MEDS ORDERED: ONDANSETRON PF 4 MG/2 ML VIAL. ONE (16:15)
[2019-01-14] MEDS ORDERED: LIDOCAINE 2% PF 5 ML VIAL. ONE (16:15)
[2019-01-14] MEDS ORDERED: PROPOFOL 20 ML IV ONE (16:15)
[2019-01-14] MEDS ORDERED: DEXAMETHASONE SOD PHOS 20 MG/5 ML VIAL. ONE (16:15)
[2019-01-14] MEDS ORDERED: SEVOFLURANE 31 TO 60 MINUTES. IH ONE (16:16)
[2019-01-14] MEDS ORDERED: NEOSTIGMINE METHYLSULFATE 5 MG/5 ML SYRINGE. ONE (16:18)
[2019-01-14] MEDS ORDERED: GLYCOPYRROLATE 1 MG/5 ML VIAL. ONE (16:19)
[2019-01-14] MEDS: IV DEXTROSE 5%-LACT RINGERS 1,000 ML IV SCH (16:26)
--- NOTE | 2019-01-14 16:26 | PDOC4 ---
Operative Note Operative Note Date: 01/14/2019 Preoperative diagnosis: Acute appendicitis Postoperative diagnosis: Same Procedure: Laparoscopic appendectomy Surgeon: Kwadwo Specimen: Appendix Dictation: Patient is a 48-year-old female is better the hospital with right lower quadrant abdominal pain and CT scan showing signs consistent with acute appendicitis. Procedure lap scopic appendectomy was explained to the patient in detail all risks benefits were also discussed including bleeding infection injury to intra-abdominal contents possibly necessitating further or open operations alternatives to this procedure also discussed with the patient who seemed to understand and gave both verbal and written consent to have the procedure performed. Patient was taken to the operating room placed in supine position general anesthesia was initiated once patient was sleep and intubated her abdomen was prepped and draped usual sterile fashion using ChloraPrep. An area just below the umbilicus was injected with quarter percent Marcaine with epinephrine incision was made with a 11 blade knife and a Veress needle was plac ed within the abdomen creating pneumoperitoneum once this complete 12 mm port was placed and a 5 mm camera was placed within the abdomen which was inspected no other abdomen maladies were noted. 5mm Port was placed low in the midline and a second 5 mm Port was placed in the right mid abdomen the appendix was visualized and grasped and retracted toward the anterior abdominal wall a window was propagated the base the appendix through the mesial appendix a Endo ELBA stapler was used to staple and transect the base the appendix second low was used to staple and transect the mesoappendix. Appendix was then placed in Endo Catch bag and removed from the umbilicus right lower quadrant pelvis were all irrigated and suctioned dry hemostasis deemed to be appropriate at that point and the pneumoperitoneum was reduced all ports removed the fascial defect at the umbilicus closed [id number] Vicryl suture and the skin was approximate all port sites for septic or Monocryl Mastisol Steri-Strips and island dressings were applied. Patient was awakened and asked bated operating room taken to recovery in stable condition all sponge instrument needle counts listed as correct estimated blood loss 5 mL. LOUISE MARIE MD Jan 14, 2019 16:25
[2019-01-14] MEDS ORDERED: oxyCODONE/APAP 5/325 1 TAB TABLET PO PRN (16:30)
[2019-01-14] MEDS ORDERED: 0.9 % SODIUM CHLORIDE 10 ML DISP.SYRIN. IV PRN (16:30)
--- NOTE | 2019-01-14 18:38 | NUR ---
pt arrived to room 420 via bed from OR. lap sites X 3 to abdomen clean dry intact. pt accompanied by . oriented to room and call light. ice water provided. VSS
--- NOTE | 2019-01-14 20:00 | NUR ---
ADMIT NOTE The patient, SEA PATTERSON, 48 y/o, F admitted by LOUISE MARIE MD, was given written information regarding hospital policies, unit procedures and contact persons. Report rcvd. from CHANTELLE Haynes. Patient afebrile, VSS, with mild complaints of pain on admission. Patient's plan of care discussed, admission assessment complete, admit packet reviewed and valuables were checked and left in room with patient. Patient in bed with call light within reach, will continue to monitor.
[2019-01-14] MEDS ORDERED: CYCL10TA2 PO (20:31)
[2019-01-14] MEDS ORDERED: BUDE10.2 PO (20:31)
[2019-01-14] MEDS ORDERED: CYCLOBENZAPRINE 10 MG TABLET. PO PRN (20:45)
[2019-01-14] MEDS: oxyCODONE/APAP 5/325 1 TAB TABLET PO PRN (20:55)
[2019-01-14] MEDS: cefOXitin SODIUM IV Push 1 GM VIAL. IVP SCH (20:55)
[2019-01-15] MEDS: oxyCODONE/APAP 5/325 1 TAB TABLET PO PRN ×2 (02:15→06:16)
[2019-01-15 03:00] VITALS: BP 104/64
[2019-01-15] MEDS: cefOXitin SODIUM IV Push 1 GM VIAL. IVP SCH (05:03)
[2019-01-15] MEDS: IV DEXTROSE 5%-LACT RINGERS 1,000 ML IV SCH (05:46)
[2019-01-15 06:51] LABS: BASO % 0 % (0-3); EOS % 0 % (0-3); LYMPH # 0.9 x10^3/uL (1.0-4.8); LYMPH % 12 % (24-48); MEAN CORPUSCULAR HEMOGLOBIN 34 pg (25-35); MEAN CORPUSCULAR HGB CONC 34 g/dL (31-37); MEAN CORPUSCULAR VOLUME 98 fL (79-100); MONO # 0.5 x10^3/uL (0.0-1.1); MONO % 7 % (0-9); NEUT # 6.4 x10^3/uL (1.8-7.7); NEUT % 81 % (31-73); PLATELET COUNT 214 x10^3/uL (140-400); RED BLOOD COUNT 3.57 x10^6/uL (3.50-5.40); RED CELL DISTRIBUTION WIDTH 12.3 % (11.5-14.5)
[2019-01-15 07:00] VITALS: BP 112/72
[2019-01-15] MEDS ORDERED: OXYC1TAB15 PO (08:41)
--- NOTE | 2019-01-15 08:44 | DISCH ---
DISCHARGE INSTRUCTIONS Condition on Discharge Condition on Discharge: Stable Activity After Discharge Activity Instructions for Disc: Activity as tolerated Other activity instructions: no lifting > 20 lbs x 2 weeks Bathing Instructions: No Tub Bath until see (x 2 weeks ) Lifting Instructions after Dis: No heavy lifting Driving Instructions after Dis: Do not drive (while taking narcotics ) Diet after Discharge Diet after Discharge: Regular Wound Incision Care Wound/Incision Care: May get incision wet, No wound care needed Contacting the after DC Call your doctor for: Concerns you may have Follow-Up Follow up with: Dr Burkett 2 weeks, call to schedule [phone] ZOILA BORREGO APRN Jan 15, 2019 08:44
--- NOTE | 2019-01-15 08:45 | PDOC ---
ZOILA BORREGO PATIENT SERVICES TECHNICIAN 01/15/19 0845: SURGICAL PROGRESS NOTE Subjective tolerating diet pain managed urinating Vital Signs Vital Signs Date Time Temp Pulse Resp B/P (MAP) Pulse Ox O2 Delivery O2 Flow Rate FiO2 01/15/19 07:23 14 Room Air 01/15/19 07:00 98.1 83 112/72 (85) 100 98.1 01/14/19 17:25 10 I&O Intake and Output 01/15/19 06:59 Intake Total 3300 ml Output Total 10 ml Balance 3290 ml Intake Oral 800 ml IV Total 2500 ml Output Estimated Blood Loss 10 ml # Voids 4 General: Alert, Oriented X3, Cooperative, No acute distress Abdomen: Soft, Other (ND, lap dressings dry, incision dressings dry) Labs Laboratory Tests Test 01/14/19 13:07 01/14/19 13:40 01/15/19 05:20 Urine Collection Type Unknown Urine Color Yellow Urine Clarity Clear Urine pH 5.5 Urine Specific [place] 1.015 Urine Protein Negative mg/dL (NEG-TRACE) Urine Glucose (UA) Negative mg/dL (NEG) Urine Ketones (Stick) 15 mg/dL (NEG) Urine Blood Negative (NEG) Urine Nitrite Negative (NEG) Urine Bilirubin Negative (NEG) Urine Urobilinogen Dipstick 0.2 mg/dL (0.2 mg/dL) Urine Leukocyte Esterase Negative (NEG) Urine RBC 0 /HPF (0-2) Urine WBC Occ /HPF (0-4) Urine Squamous Epithelial Cells Many /LPF Urine Bacteria Moderate /HPF (0-FEW) Urine Mucus Mod /LPF White Blood Count 9.0 x10^3/uL (4.0-11.0) 8.0 x10^3/uL (4.0-11.0) Red Blood Count 4.06 x10^6/uL (3.50-5.40) 3.57 x10^6/uL (3.50-5.40) Hemoglobin 13.5 g/dL (12.0-15.5) 12.0 g/dL (12.0-15.5) Hematocrit 39.6 % (36.0-47.0) 35.0 % (36.0-47.0) Mean Corpuscular Volume 98 fL (79-100) 98 fL (79-100) Mean Corpuscular Hemoglobin 33 pg (25-35) 34 pg (25-35) Mean Corpuscular Hemoglobin Concent 34 g/dL (31-37) 34 g/dL (31-37) Red Cell Distribution Width 12.9 % (11.5-14.5) 12.3 % (11.5-14.5) Platelet Count 244 x10^3/uL (140-400) 214 x10^3/uL (140-400) Neutrophils (%) (Auto) 77 % (31-73) 81 % (31-73) Lymphocytes (%) (Auto) 11 % (24-48) 12 % (24-48) Monocytes (%) (Auto) 9 % (0-9) 7 % (0-9) Eosinophils (%) (Auto) 3 % (0-3) 0 % (0-3) Basophils (%) (Auto) 0 % (0-3) 0 % (0-3) Neutrophils # (Auto) 7.0 x10^3/uL (1.8-7.7) 6.4 x10^3/uL (1.8-7.7) Lymphocytes # (Auto) 1.0 x10^3/uL (1.0-4.8) 0.9 x10^3/uL (1.0-4.8) Monocytes # (Auto) 0.8 x10^3/uL (0.0-1.1) 0.5 x10^3/uL (0.0-1.1) Eosinophils # (Auto) 0.3 x10^3/uL (0.0-0.7) 0.0 x10^3/uL (0.0-0.7) Basophils # (Auto) 0.0 x10^3/uL (0.0-0.2) 0.0 x10^3/uL (0.0-0.2) Sodium Level 138 mmol/L (136-145) Potassium Level 3.9 mmol/L (3.5-5.1) Chloride Level 101 mmol/L (98-107) Carbon Dioxide Level 27 mmol/L (21-32) Anion Gap 10 (6-14) Blood Urea Nitrogen 10 mg/dL (7-20) Creatinine 1.1 mg/dL (0.6-1.0) Estimated GFR (Cockcroft-Gault) 53.5 BUN/Creatinine Ratio 9 (6-20) Glucose Level 84 mg/dL (70-99) Calcium Level 9.3 mg/dL (8.5-10.1) Total Bilirubin 0.5 mg/dL (0.2-1.0) Aspartate Amino Transf (AST/SGOT) 17 U/L (15-37) Alanine Aminotransferase (ALT/SGPT) 16 U/L (14-59) Alkaline Phosphatase 83 U/L (46-116) Total Protein 8.1 g/dL (6.4-8.2) Albumin 3.8 g/dL (3.4-5.0) Albumin/Globulin Ratio 0.9 (1.0-1.7) Lipase 100 U/L (73-393) Serum Test, Qualitative Negative (NEG) Laboratory Tests Test 01/14/19 13:07 01/14/19 13:40 01/15/19 05:20 Urine Collection Type Unknown Urine Color Yellow Urine Clarity Clear Urine pH 5.5 Urine Specific [place] 1.015 Urine Protein Negative mg/dL (NEG-TRACE) Urine Glucose (UA) Negative mg/dL (NEG) Urine Ketones (Stick) 15 mg/dL (NEG) Urine Blood Negative (NEG) Urine Nitrite Negative (NEG) Urine Bilirubin Negative (NEG) Urine Urobilinogen Dipstick 0.2 mg/dL (0.2 mg/dL) Urine Leukocyte Esterase Negative (NEG) Urine RBC 0 /HPF (0-2) Urine WBC Occ /HPF (0-4) Urine Squamous Epithelial Cells Many /LPF Urine Bacteria Moderate /HPF (0-FEW) Urine Mucus Mod /LPF White Blood Count 9.0 x10^3/uL (4.0-11.0) 8.0 x10^3/uL (4.0-11.0) Red Blood Count 4.06 x10^6/uL (3.50-5.40) 3.57 x10^6/uL (3.50-5.40) Hemoglobin 13.5 g/dL (12.0-15.5) 12.0 g/dL (12.0-15.5) Hematocrit 39.6 % (36.0-47.0) 35.0 % (36.0-47.0) Mean Corpuscular Volume 98 fL (79-100) 98 fL (79-100) Mean Corpuscular Hemoglobin 33 pg (25-35) 34 pg (25-35) Mean Corpuscular Hemoglobin Concent 34 g/dL (31-37) 34 g/dL (31-37) Red Cell Distribution Width 12.9 % (11.5-14.5) 12.3 % (11.5-14.5) Platelet Count 244 x10^3/uL (140-400) 214 x10^3/uL (140-400) Neutrophils (%) (Auto) 77 % (31-73) 81 % (31-73) Lymphocytes (%) (Auto) 11 % (24-48) 12 % (24-48) Monocytes (%) (Auto) 9 % (0-9) 7 % (0-9) Eosinophils (%) (Auto) 3 % (0-3) 0 % (0-3) Basophils (%) (Auto) 0 % (0-3) 0 % (0-3) Neutrophils # (Auto) 7.0 x10^3/uL (1.8-7.7) 6.4 x10^3/uL (1.8-7.7) Lymphocytes # (Auto) 1.0 x10^3/uL (1.0-4.8) 0.9 x10^3/uL (1.0-4.8) Monocytes # (Auto) 0.8 x10^3/uL (0.0-1.1) 0.5 x10^3/uL (0.0-1.1) Eosinophils # (Auto) 0.3 x10^3/uL (0.0-0.7) 0.0 x10^3/uL (0.0-0.7) Basophils # (Auto) 0.0 x10^3/uL (0.0-0.2) 0.0 x10^3/uL (0.0-0.2) Sodium Level 138 mmol/L (136-145) Potassium Level 3.9 mmol/L (3.5-5.1) Chloride Level 101 mmol/L (98-107) Carbon Dioxide Level 27 mmol/L (21-32) Anion Gap 10 (6-14) Blood Urea Nitrogen 10 mg/dL (7-20) Creatinine 1.1 mg/dL (0.6-1.0) Estimated GFR (Cockcroft-Gault) 53.5 BUN/Creatinine Ratio 9 (6-20) Glucose Level 84 mg/dL (70-99) Calcium Level 9.3 mg/dL (8.5-10.1) Total Bilirubin 0.5 mg/dL (0.2-1.0) Aspartate Amino Transf (AST/SGOT) 17 U/L (15-37) Alanine Aminotransferase (ALT/SGPT) 16 U/L (14-59) Alkaline Phosphatase 83 U/L (46-116) Total Protein 8.1 g/dL (6.4-8.2) Albumin 3.8 g/dL (3.4-5.0) Albumin/Globulin Ratio 0.9 (1.0-1.7) Lipase 100 U/L (73-393) Serum Test, Qualitative Negative (NEG) Problem List Problems Medical Problems: (1) Acute appendicitis Status: Acute Assessment/Plan s/p appy tn home LOUISE MARIE MD 01/15/19 0936: SURGICAL PROGRESS NOTE Assessment/Plan Agree with Germain assessment and plan ZOILA BORREGO PATIENT SERVICES TECHNICIAN Jan 15, 2019 08:45 LOUISE MARIE MD Jan 15, 2019 09:36
--- NOTE | 2019-01-15 08:47 | PDOC3 ---
Discharge Summary Visit Information Date of Admission: Jan 14, 2019 Date of Discharge: Jan 15, 2019 Admitting Diagnosis: acute appendicitis Final Diagnosis Problems Medical Problems: (1) Acute appendicitis Status: Acute Brief Hospital Course Allergies Allergies Coded Allergies Type Severity Reaction Last Updated Verified ibuprofen Allergy Severe ANAPHALAXIS 09/01/18 Yes Milk Containing Products Adverse Reaction Intermediate GASTRIC UPSET 09/01/18 Yes Vital Signs Vital Signs Date Time Temp Pulse Resp B/P (MAP) Pulse Ox O2 Delivery O2 Flow Rate FiO2 01/15/19 07:23 14 Room Air 01/15/19 07:00 98.1 83 112/72 (85) 100 98.1 01/14/19 17:25 10 Lab Results Laboratory Tests Test 01/14/19 13:07 01/14/19 13:40 01/15/19 05:20 Urine Collection Type Unknown Urine Color Yellow Urine Clarity Clear Urine pH 5.5 Urine Specific [place] 1.015 Urine Protein Negative mg/dL (NEG-TRACE) Urine Glucose (UA) Negative mg/dL (NEG) Urine Ketones (Stick) 15 mg/dL (NEG) Urine Blood Negative (NEG) Urine Nitrite Negative (NEG) Urine Bilirubin Negative (NEG) Urine Urobilinogen Dipstick 0.2 mg/dL (0.2 mg/dL) Urine Leukocyte Esterase Negative (NEG) Urine RBC 0 /HPF (0-2) Urine WBC Occ /HPF (0-4) Urine Squamous Epithelial Cells Many /LPF Urine Bacteria Moderate /HPF (0-FEW) Urine Mucus Mod /LPF White Blood Count 9.0 x10^3/uL (4.0-11.0) 8.0 x10^3/uL (4.0-11.0) Red Blood Count 4.06 x10^6/uL (3.50-5.40) 3.57 x10^6/uL (3.50-5.40) Hemoglobin 13.5 g/dL (12.0-15.5) 12.0 g/dL (12.0-15.5) Hematocrit 39.6 % (36.0-47.0) 35.0 % (36.0-47.0) Mean Corpuscular Volume 98 fL (79-100) 98 fL (79-100) Mean Corpuscular Hemoglobin 33 pg (25-35) 34 pg (25-35) Mean Corpuscular Hemoglobin Concent 34 g/dL (31-37) 34 g/dL (31-37) Red Cell Distribution Width 12.9 % (11.5-14.5) 12.3 % (11.5-14.5) Platelet Count 244 x10^3/uL (140-400) 214 x10^3/uL (140-400) Neutrophils (%) (Auto) 77 % (31-73) 81 % (31-73) Lymphocytes (%) (Auto) 11 % (24-48) 12 % (24-48) Monocytes (%) (Auto) 9 % (0-9) 7 % (0-9) Eosinophils (%) (Auto) 3 % (0-3) 0 % (0-3) Basophils (%) (Auto) 0 % (0-3) 0 % (0-3) Neutrophils # (Auto) 7.0 x10^3/uL (1.8-7.7) 6.4 x10^3/uL (1.8-7.7) Lymphocytes # (Auto) 1.0 x10^3/uL (1.0-4.8) 0.9 x10^3/uL (1.0-4.8) Monocytes # (Auto) 0.8 x10^3/uL (0.0-1.1) 0.5 x10^3/uL (0.0-1.1) Eosinophils # (Auto) 0.3 x10^3/uL (0.0-0.7) 0.0 x10^3/uL (0.0-0.7) Basophils # (Auto) 0.0 x10^3/uL (0.0-0.2) 0.0 x10^3/uL (0.0-0.2) Sodium Level 138 mmol/L (136-145) Potassium Level 3.9 mmol/L (3.5-5.1) Chloride Level 101 mmol/L (98-107) Carbon Dioxide Level 27 mmol/L (21-32) Anion Gap 10 (6-14) Blood Urea Nitrogen 10 mg/dL (7-20) Creatinine 1.1 mg/dL (0.6-1.0) Estimated GFR (Cockcroft-Gault) 53.5 BUN/Creatinine Ratio 9 (6-20) Glucose Level 84 mg/dL (70-99) Calcium Level 9.3 mg/dL (8.5-10.1) Total Bilirubin 0.5 mg/dL (0.2-1.0) Aspartate Amino Transf (AST/SGOT) 17 U/L (15-37) Alanine Aminotransferase (ALT/SGPT) 16 U/L (14-59) Alkaline Phosphatase 83 U/L (46-116) Total Protein 8.1 g/dL (6.4-8.2) Albumin 3.8 g/dL (3.4-5.0) Albumin/Globulin Ratio 0.9 (1.0-1.7) Lipase 100 U/L (73-393) Serum Test, Qualitative Negative (NEG) Laboratory Tests Test 01/14/19 13:07 01/14/19 13:40 01/15/19 05:20 Urine Collection Type Unknown Urine Color Yellow Urine Clarity Clear Urine pH 5.5 Urine Specific [place] 1.015 Urine Protein Negative mg/dL (NEG-TRACE) Urine Glucose (UA) Negative mg/dL (NEG) Urine Ketones (Stick) 15 mg/dL (NEG) Urine Blood Negative (NEG) Urine Nitrite Negative (NEG) Urine Bilirubin Negative (NEG) Urine Urobilinogen Dipstick 0.2 mg/dL (0.2 mg/dL) Urine Leukocyte Esterase Negative (NEG) Urine RBC 0 /HPF (0-2) Urine WBC Occ /HPF (0-4) Urine Squamous Epithelial Cells Many /LPF Urine Bacteria Moderate /HPF (0-FEW) Urine Mucus Mod /LPF White Blood Count 9.0 x10^3/uL (4.0-11.0) 8.0 x10^3/uL (4.0-11.0) Red Blood Count 4.06 x10^6/uL (3.50-5.40) 3.57 x10^6/uL (3.50-5.40) Hemoglobin 13.5 g/dL (12.0-15.5) 12.0 g/dL (12.0-15.5) Hematocrit 39.6 % (36.0-47.0) 35.0 % (36.0-47.0) Mean Corpuscular Volume 98 fL (79-100) 98 fL (79-100) Mean Corpuscular Hemoglobin 33 pg (25-35) 34 pg (25-35) Mean Corpuscular Hemoglobin Concent 34 g/dL (31-37) 34 g/dL (31-37) Red Cell Distribution Width 12.9 % (11.5-14.5) 12.3 % (11.5-14.5) Platelet Count 244 x10^3/uL (140-400) 214 x10^3/uL (140-400) Neutrophils (%) (Auto) 77 % (31-73) 81 % (31-73) Lymphocytes (%) (Auto) 11 % (24-48) 12 % (24-48) Monocytes (%) (Auto) 9 % (0-9) 7 % (0-9) Eosinophils (%) (Auto) 3 % (0-3) 0 % (0-3) Basophils (%) (Auto) 0 % (0-3) 0 % (0-3) Neutrophils # (Auto) 7.0 x10^3/uL (1.8-7.7) 6.4 x10^3/uL (1.8-7.7) Lymphocytes # (Auto) 1.0 x10^3/uL (1.0-4.8) 0.9 x10^3/uL (1.0-4.8) Monocytes # (Auto) 0.8 x10^3/uL (0.0-1.1) 0.5 x10^3/uL (0.0-1.1) Eosinophils # (Auto) 0.3 x10^3/uL (0.0-0.7) 0.0 x10^3/uL (0.0-0.7) Basophils # (Auto) 0.0 x10^3/uL (0.0-0.2) 0.0 x10^3/uL (0.0-0.2) Sodium Level 138 mmol/L (136-145) Potassium Level 3.9 mmol/L (3.5-5.1) Chloride Level 101 mmol/L (98-107) Carbon Dioxide Level 27 mmol/L (21-32) Anion Gap 10 (6-14) Blood Urea Nitrogen 10 mg/dL (7-20) Creatinine 1.1 mg/dL (0.6-1.0) Estimated GFR (Cockcroft-Gault) 53.5 BUN/Creatinine Ratio 9 (6-20) Glucose Level 84 mg/dL (70-99) Calcium Level 9.3 mg/dL (8.5-10.1) Total Bilirubin 0.5 mg/dL (0.2-1.0) Aspartate Amino Transf (AST/SGOT) 17 U/L (15-37) Alanine Aminotransferase (ALT/SGPT) 16 U/L (14-59) Alkaline Phosphatase 83 U/L (46-116) Total Protein 8.1 g/dL (6.4-8.2) Albumin 3.8 g/dL (3.4-5.0) Albumin/Globulin Ratio 0.9 (1.0-1.7) Lipase 100 U/L (73-393) Serum Test, Qualitative Negative (NEG) Brief Hospital Course Ms. Sandy is a 48 old female who presented with acute appendicitis and underwent laparoscopic appendectomy. Postoperatively tolerating diet, ambulating, and pain managed with oral medications. Ready to discharge home. Discharge Information Condition at Discharge: Stable Follow Up: Weeks (2) Disposition/Orders: D/C to Home Scheduled Budesonide/Formoterol Fumarate (Symbicort 160-4.5 Mcg Inhaler) 10.2 Gm Hfa.aer.ad, 1 PUFF PO BID for Asthma, (Reported) Entered as Reported by: RIRI PELLETIER on 01/14/192030 Last Action: New Order on 01/14/192030 by RIRI PELLETIER Cyclobenzaprine Hcl (Cyclobenzaprine Hcl) 10 Mg Tablet, 10 MG PO QHS for Muscle spasms, (Reported) Entered as Reported by: RIRI PELLETIER on 01/14/192030 Last Action: New Order on 01/14/192030 by RIRI PELLETIER Diphenhydramine Hcl (Allergy Medicine) 25 Mg Capsule, 25 MG PO DAILY for ALLERGIES, (Reported) Entered as Reported by: GUILLERMO ACE on 09/01/181324 Fluoxetine Hcl (Prozac) 40 Mg Capsule, 60 MG PO DAILY for ANXIETY, (Reported) Entered as Reported by: GUILLERMO ACE on 09/01/181324 Last Action: Reviewed on 01/14/192030 by RIRI PELLETIER Montelukast Sodium (Montelukast Sodium Tablet ) 10 Mg Tablet, 10 MG PO HS for ASTHMA, #30 Ref 0 (Reported) Entered as Reported by: GUILLERMO ACE on 09/01/18 1325 Scheduled PRN Oxycodone/Apap 5-325 (Percocet 5-325 Mg Tablet ) 1 Each Tablet, 1 TAB PO PRN Q4HRS PRN for MILD PAIN, 1ST CHOICE, #30 Ref 0 Prescribed by: Yamilka Franklin on 01/15/19 0841 YAMILKA FRANKLIN APRN Jan 15, 2019 08:47
--- NOTE | 2019-01-15 09:29 | NUR ---
SS following for discharge planning. SS reviewed pt chart. Pt is from home with spouse and is currently on room air. No discharge needs noted at this time. SS will continue to follow for discharge planning.
--- NOTE | 2019-01-15 12:44 | NUR ---
Pt discharged to home with rx, verbalized understanding of discharge instructions. Lap sites cdi.
--- NOTE | 2019-01-19 11:07 | PATHOLOGY ---
[facility] Accession Number: [id number] . 01 Material submitted: . appendix - APPENDIX . 01 Clinical history: . Acute appendicitis . 02 Diagnosis: Appendix, appendectomy: - Acute appendicitis. (MAP:[facility] [place]; 01/18/2019) [facility] 01/18/2019 1715 Local . 02 Electronically signed: . Jomar Caceres MD, Pathologist NPI- [id number] . 01 Gross description: . The specimen is received in formalin, labeled "Amara Sandy, appendix". Received is a vermiform appendix measuring 8.9 cm in length by up to 0.9 cm in diameter with a moderate amount of attached mesoappendix. The serosal surface is pale stewart to pink-stewart and glistening in appearance. The surgical margin is closed with a line of helen. The helen are removed the new margin is inked black. Sectioning reveals a patent to dilated lumen filled with fecal material. At the distal tip, the appendix appears to display a perforation into the attached mesoappendix. The specimen is submitted representatively A1 and A2, with the proximal margin and entire bisected tip submitted in cassette A2, to include the possible perforation. (CAA; 01/17/2019) QAC/QAC 01/17/2019 0829 Local . 02 Pathologist provided ICD-10: K35.80 . 02 CPT . 120662 Specimen Comment: A courtesy copy of this report has been sent to Specimen Comment: [phone], , . Specimen Comment: Report sent to ,DR CHENG / DR HOLMAN Performed at: [address] [place] [address] [address], [place], [place] [id number] MD Joshua Cole MD Phone: [phone] Performed at: [address] [id number] MD Ofe Lopez MD Phone: [phone]
== END 2019-01-15 12:35 | disposition home or self-care (01) ==
LOC: ER 13:01 → 4 NORTH 14:40
PROVIDERS: ADMIT Surgery; ATTEND Surgery
PROC: 0DTJ4ZZ Resection of Appendix, Percutaneous Endoscopic Approach (ICD-10-PCS; principal; 2019-01-14 15:00)
DX: K35.80 Unspecified acute appendicitis (principal); Z98.82 Breast implant status; Z98.890 Other specified postprocedural states; R11.2 Nausea with vomiting, unspecified
CPT/HCPCS: 36415; 44970; 74177; 80053; 81001; 83690; 84703; 85025; 87086; 96372; 96374; 96375; 96376; 99284; A7015; G0378; J0330; J0694; J1100; J2001; J2270; J2405; J2543; J2704; J2710; J3010; J3490; J7030; J7120; Q9967; G0379

== ENCOUNTER → 2020-02-17 | Outpatient (CLI) | payer BC, OTHER ==
[~2020-02-17] MED LIST changes: +BUDE10.2 PO; +CYCL10TA2 PO; +OXYC1TAB15 PO
--- NOTE | 2020-02-17 16:37 | KCIC ---
Bilateral diagnostic digital mammograms: Reason for examination: Follow-up right breast nodule. Routine screening of the left breast. Comparison is made to previous studies dated back to 02/06/2017. Interpretation was made with the benefit of CAD. The skin and nipples show no abnormalities. No abnormal axillary lymph nodes are seen. Bilateral breast implants remain present. The breast parenchyma is extremely dense. (Breast density: Category D.) There are no dominant masses, suspicious calcifications or architectural distortion. Impression: No evidence of malignancy. Ultrasound to follow. Right breast ultrasound: Comparison is made to previous studies dated 12/29/2018 and 05/11/2018. Adjacent to the implant at the 11:00 position 8.5 cm from the nipple, there continues to be a small 4.3 mm fibrocystic lesion which has remained stable. In the 12:00 position 5 cm from the nipple, there is a small 2.5 mm hypoechoic fibrocystic lesion which is stable. No new cystic or solid lesions are seen. No abnormal appearing lymph nodes are seen in the axilla. IMPRESSION: No change in a small fibrocystic lesions at the 11:00 and 12:00 positions. Recommend routine mammographic follow-up. Your patient's mammogram demonstrates that she has dense breast tissue (breast density category C or D), which could hide abnormalities, and if she has other risk factors for breast cancer that have been identified, she might benefit from supplemental screening tests that may be suggested by you as her ordering physician. Dense breast tissue, in and of itself, is a relatively common condition. Therefore, this information is not provided to cause undue concern, but rather to raise your awareness and to promote discussion with your patient regarding the presence of other risk factors, in addition to dense breast tissue. Your patient's mammography results will be sent to her. BI-RAD Category 2: Benign. "Our facility is accredited by the [employer] Mammography Program." This patient's information has been entered into a reminder system for the patient to be notified with the results of her examination and a target date for the next mammogram. Electronically signed by: Magaly Vargas MD (02/17/2020 4:34 PM) [id number]
== END ==
LOC: KCIC MAMMO 09:05
PROVIDERS: ATTEND Nurse Practitioner Family
DX: R92.2 Inconclusive mammogram (principal)
CPT/HCPCS: 76641; 77066

== ENCOUNTER → 2020-08-16 | Outpatient (CLI) | payer BC ==
--- NOTE | 2020-08-16 18:06 | KCIC ---
INDICATION: Reason: Chest pain, heaviness, smoker of 32 yrs., tingling Lt arm. / Spl. Instructions: / History: COMPARISON: None. FINDINGS: 2 view of chest obtained. No focal airspace consolidation or edema. There is some hyperexpansion of the lungs. Mild degenerativ e changes of the spine with osteophyte formation. IMPRESSION: * No focal airspace consolidation. * There is some hyperexpansion of the lungs. Causes such as asthma or emphysema not excluded. Electronically signed by: Fred Meraz MD (08/16/2020 6:03 PM) [id number]
== END ==
LOC: KCIC 11:21
PROVIDERS: ATTEND Nurse Practitioner Family
DX: R07.9 Chest pain, unspecified (principal); F17.200 Nicotine dependence, unspecified, uncomplicated
CPT/HCPCS: 71046

== ENCOUNTER → 2021-03-07 | Outpatient (CLI) | payer BC ==
[~2021-03-07] MED LIST changes: +CYCL10TA19 PO; -CYCL10TA2 PO
--- NOTE | 2021-03-07 09:42 | KCIC ---
INDICATION : Routine Screening. COMPARISON: Priors including February 2020 TECHNIQUE: Standard mammogram screening views of the bilateral breasts were obtained with implant dis placed views. CAD was utilized. FINDINGS: The breasts are extremely dense which limits the sensitivity for mammography. No definite suspicious mass. IMPRESSION: BI-RADS Category 1: Negative. The patient was placed into the recall system with a suggested recall date for follow up imaging. Mammography is the most sensitive method for finding small breast cancers, but it does not detect the m all and is not a substitute for careful clinical examination. A negative mammogram does not negate a clinically suspicious finding and should not result in delay in biopsying a clinically suspicious abnormality. Electronically signed by: Fred Meraz MD (03/07/2021 9:40 AM) [id number]
== END ==
LOC: KCIC MAMMO 08:04
PROVIDERS: ATTEND Nurse Practitioner Family
DX: Z12.31 Encounter for screening mammogram for malignant neoplasm of breast (principal)
CPT/HCPCS: 77067

== ENCOUNTER → 2021-03-22 | Outpatient (CLI) | payer BC ==
[~2021-03-22] MED LIST changes: +REGADENOSON 0.4 MG/5 ML DISP.SYRIN. IV ONE
--- NOTE | 2021-03-23 18:39 | RAD ---
MR#: [id number] Date of Study: 03/22/2021 Ordering Physician: MADDI BALDERAS, Referring Physician: RIDDHI NEWSOME Tech: Kim Isidro, RT (R) (N) APPROVED REPORT Test Type: Pharmacological Stress Nurse/Tech: Surya Ramírez RN Test Indications: Chest Pain Cardiac History: Family Hx, See EMR. Medications: See EMR. Medical History: Asthma, Smoker, See EMR. Resting ECG: SR Resting Heart Rate: 94 bpm Resting Blood Pressure: 124/73mmHg Pretest Chest Pain: No chest pain Nurse/Tech Notes Lungs CTA, Heart tones regular. Pt started treadmill test; though was unable to complete due to fatig ue. Pt sat to rest and then lexiscan started. Consent: The procedure was explained to the patient in lay terms. Informed consent was witnessed. Herman eout was entered into [employer]. History and Stress Test performed by YESICA Butterfield Pharm. Details Pharmacologic stress testing was performed using 0.4mg per 5ml of regadenoson given intravenously ove r 7-10 seconds. Stress Symptoms Nausea POST EXERCISE Reason for Termination: Infusion complete Max HR: 102 bpm Max Blood Pressure: 118/66mmHg Blood Pressure response to exercise: Normal blood pressure response during stress. Heart Rate response to exercise: WNL Chest Pain: No. Arrhythmia: No. ST Change: No. INTERPRETATION Stress EKG Conclusion: No evidence of stress induced EKG changes. Imaging Protocol IMAGE PROTOCOL: Rest Tc-99m/stress Tc-99m 1 day Rest: Stress: Viability: Radiopharm.Tc99m [id number] Sestamibi Dose10.4mCi 31mCi Duration 15min. 10min. Img Date 03/22/2021 03/22/2021 Inj-Img [id number]. 60min. Rest Admin Site:IV - Right AntecubitalAdministrator:YESICA Butterfield Stress Admin Site: IV - Right AntecubitalAdministrator: JHOAN Aranda, ARRT (R)(N) STRESS DATA End Diast. Vol.75.0mlAv. Heart Rate63.0bpm End Syst. Vol.17.0mlCO Index BSA0.0L/min Myocardial Tzma937.0gEject. Hljqakha84.0% Stress Rates Pk. Fill Rate2.82EDV/secLVtime Pk. Fill 104.69msec Pk. Empty Rate3.79ESV/secLVtime Pk. Ayorq408.37msec 1/3 Pk. Fill1.99EDV/sec Stress Scores Regional WT0.00Summed WT0.00 Regional WM0.00Summed WM0.00 The rest and stress images show normal perfusion, normal contraction and thickening. LV Perf. Quant 17 Seg. SSS0.00 17 Seg. SRS0.00 17 Seg. SDS0.00 Stress Defect Extent (% LAD)0.00Rest Defect Extent (% LAD)0.00Rev. Defect Extent (% LAD)0.00 Stress Defect Extent (% LCX) 0.00Rest Defect Extent (% LCX)0.00Rev. Defect Extent (% LCX)0.00 Stress Defect Extent (% RCA)0.00Rest Defect Extent (% RCA)0.00Rev. Defect Extent (% RCA)0.00 Stress Defect Extent (% ROSANNA)0.00Rest Defect Extent (% ROSANNA)0.00Rev. Defect Extent (% ROSANNA)0.00 Other Information Quality:Good Risk Assessment: Low Risk Conclusion 1. No evidence of EKG changes with stress testing. 2. Normal perfusion at stress/rest. 3. Low risk study. 4. EF > 60%. Signed by : Isrrael Delgado, Electronically Approved : 03/23/2021 18:38:37
== END ==
LOC: NM 08:44
PROVIDERS: ATTEND Internal Medicine Cardiovascular Disease
DX: R07.9 Chest pain, unspecified (principal)
CPT/HCPCS: 78452; 93017; A9500; J2785